=== PATIENT | female | born 1965 | race Caucasian/White ===

== ENCOUNTER → 2016-09-10 | Outpatient (CLI) | payer SELFPAY ==
[~2016-09-10] MED LIST: ALAVERT10 MG PO; BUPROPION XL300 MG PO; BUSPIRONE HCL15 MG PO; BUSPIRONE HCL7.5 MG; CLONAZEPAM0.5 MG PO; CLONAZEPAM1 MG PO; DESYREL100 MG PO; HYDROCHLOROTHIA50 MG PO; K-DUR20 MEQ PO; PRILOSEC OTC20 MG PO; SIMVASTATIN20 MG PO; SIMVASTATIN40 MG PO; TRAZODONE HCL50 MG; TRAZODONE HCL50 MG PO; WELLBUTRIN XL150 MG PO; ZIPRASIDONE HCL20 MG PO
== END | disposition home or self-care (01) ==
LOC: RAD 10:48
DX: M19.041 Primary osteoarthritis, right hand (principal); M18.9 Osteoarthritis of first carpometacarpal joint, unspecified
CPT/HCPCS: 73130

== ENCOUNTER → 2017-03-09 | Outpatient (CLI) | payer SELFPAY | END | disposition home or self-care (01) | LOC: NUC 09:11 | DX: I25.9 Chronic ischemic heart disease, unspecified (principal); R07.9 Chest pain, unspecified | CPT/HCPCS: 78452; 93017; A9500; J2785 ==